=== PATIENT | female | born 1990 | race Caucasian/White ===

== ENCOUNTER 2016-12-01 22:24 | Outpatient (CLI) | payer BC | END 2016-12-02 00:55 | disposition home or self-care (01) | LOC: GENOP 22:24 | DX: O42.92 Full-term premature rupture of membranes, unspecified as to length of time between rupture and onset of labor (principal); Z3A.38 38 weeks gestation of pregnancy | CPT/HCPCS: 81001; 83518; G0463 ==

== ENCOUNTER → 2020-08-29 | Outpatient (CLI) | payer BC, OTHER ==
[~2020-08-29] MED LIST: COLACE 100MG C100 MG PO; LODINE CAP 300300 MG PO
== END ==
LOC: US 15:30 → EXRD 16:00
DX: Z13.9 Encounter for screening, unspecified (principal); Z83.49 Family history of other endocrine, nutritional and metabolic diseases
CPT/HCPCS: 76536